=== PATIENT | female | born 1975 | race Caucasian/White ===

== ENCOUNTER → 2016-11-30 | Outpatient (CLI) | payer OTHER ==
[2004-01-07 10:00] VITALS: TEMP 98.5
[~2016-11-30] MED LIST: LORTAB 5/500 501 TAB PO; PRENATAL VITAMI1 TA5 PO
== END ==
LOC: MC.RAD 13:17
DX: N63.20 Unspecified lump in the left breast, unspecified quadrant (principal)

== ENCOUNTER → 2019-04-08 | Outpatient (CLI) | payer OTHER ==
[2004-01-07 10:00] VITALS: TEMP 98.5
== END ==
LOC: MC.RAD 16:39
DX: Z12.31 Encounter for screening mammogram for malignant neoplasm of breast (principal)

== ENCOUNTER → 2023-09-04 | Outpatient (CLI) | payer OTHER ==
[2004-01-07 10:00] VITALS: PULSE 88; TEMP 98.5
== END ==
LOC: MC.RAD 09:09
DX: Z12.31 Encounter for screening mammogram for malignant neoplasm of breast (principal)